=== PATIENT | female | born 1985 | race Caucasian/White ===

== ENCOUNTER → 2020-02-04 | Outpatient (CLI) | payer OTHER ==
[~2020-02-04] MED LIST: ANAS1TAB49 PO; CHOL40002 PO; CITA20TA9 PO; No meds per pt.; [UNRECOGNIZED DRUG - CODE] IM
[2020-02-04 14:21] LABS: BASOPHILS # (AUTO) 0.06 x10^3/uL (0-0.1); BASOPHILS % (AUTO) 1 % (0-1); EOSINOPHILS # (AUTO) 0.24 x10^3/uL (0-0.4); EOSINOPHILS % (AUTO) 6 % (1-7); LYMPHOCYTES # (AUTO) 1.26 x10^3/uL (1-3.4); LYMPHOCYTES % (AUTO) 29 % (22-44); MD NO; MEAN CORPUSCULAR HGB CONC 33.5 g/dL (32.4-35.8); MEAN CORPUSCULAR VOLUME 92.5 fL (80-100); MEAN PLATELET VOLUME 7.3 fL (7.4-10.4); MONOCYTES # (AUTO) 0.29 x10^3/uL (0.2-0.8); MONOCYTES % (AUTO) 7 % (2-9); NEUTROPHILS # (AUTO) 2.52 x10^3/uL (1.8-6.8); NEUTROPHILS % (AUTO) 58 % (42-75); PLATELET COUNT 294 x10^3/uL (130-400); RED BLOOD COUNT 4.59 x10^6/uL (3.82-5.3); RED CELL DISTRIBUTION WIDTH 12.5 % (9.6-15.2)
== END | disposition home or self-care (01) ==
LOC: STAR 13:14
PROVIDERS: ATTEND Surgery
DX: Z01.818 Encounter for other preprocedural examination (principal); C50.511 Malignant neoplasm of lower-outer quadrant of right female breast; Z85.3 Personal history of malignant neoplasm of breast
CPT/HCPCS: 36415; 84703; 85025

== ENCOUNTER 2020-02-10 06:00 | Day surgery (SDC) | payer OTHER ==
[~2020-02-10] VITALS: Ht 167.6 cm; Wt 70.9 kg
[2020-02-10] MEDS ORDERED: CHLORHEXIDINE 15 ML UDC MM STA (06:53)
[2020-02-10] MEDS ORDERED: MIDAZOLAM 1 MG/ML, 2ML ONE (06:58)
[2020-02-10] MEDS ORDERED: FENTANYL PF 100 MCG/2ML ONE ×2 (06:58→10:33)
[2020-02-10] MEDS ORDERED: LACTATED RINGERS 1,000 ML IV SCH (07:02)
[2020-02-10] MEDS ORDERED: BUPIVACAINE/PF-EPI 0.5% 1:200K ONE (07:17)
[2020-02-10] MEDS ORDERED: CEFAZOLIN 1,000 MG ONE ×2 (07:17→08:01)
[2020-02-10] MEDS ORDERED: GENTAMICIN 80 MG/2 ML ONE (07:17)
[2020-02-10] MEDS ORDERED: BACITRACIN 50,000 UNIT ONE (07:18)
[2020-02-10 07:29] LABS: HCG UR SG 1.024 (1.003-1.030)
[2020-02-10] MEDS ORDERED: PROPOFOL 10 MG/ML, 20ML ONE (08:01)
[2020-02-10] MEDS ORDERED: ONDANSETRON 2MG/ML, 2ML ONE (08:01)
[2020-02-10] MEDS ORDERED: SUCCINYLCHOLINE 20 MG/ML, 10ML ONE (08:01)
[2020-02-10] MEDS ORDERED: DEXAMETHASONE 4 MG/ML, 1ML ONE (08:01)
[2020-02-10] MEDS ORDERED: ROCURONIUM 10 MG/ML,10ML ONE (08:01)
[2020-02-10] MEDS ORDERED: EPHEDRINE 50 MG/ML, 1ML ONE (08:01)
[2020-02-10] MEDS ORDERED: PROMETHAZINE 25 MG/ML, 1ML IVPush PRN (09:00)
[2020-02-10] MEDS ORDERED: HYDROcodone/APAP 7.5-325MG/15ML UDC PO PRN (09:00)
[2020-02-10] MEDS ORDERED: MEPERIDINE/PF 25MG/0.5ML IVPush PRN (09:00)
[2020-02-10] MEDS ORDERED: HYDROmorphone 1 MG/ML, 1ML INJ IVPush PRN (09:00)
[2020-02-10] MEDS ORDERED: OXYcodone 5 MG/5 ML ORAL.SOL UDC ONE (10:33)
[2020-02-10] MEDS ORDERED: HYDROcodone/APAP 7.5-325MG/15ML UDC ONE (11:02)
[2020-02-10] MEDS: FENTANYL PF 100 MCG/2ML IV PRN ×2 (11:07→11:12)
== END 2020-02-10 13:20 | disposition home or self-care (01) ==
LOC: OUT 06:00
PROVIDERS: ATTEND Surgery
DX: Z40.01 Encounter for prophylactic removal of breast (principal); Z45.2 Encounter for adjustment and management of vascular access device; Z11.59 Encounter for screening for other viral diseases; Z79.899 Other long term (current) drug therapy; Z85.3 Personal history of malignant neoplasm of breast; Z90.11 Acquired absence of right breast and nipple; Z92.21 Personal history of antineoplastic chemotherapy; Z80.6 Family history of leukemia
CPT/HCPCS: 15777; 19301; 19357; 36590; 81025; 88307; C1729; C1762; C1789; J0330; J0690; J1100; J1580; J2250; J2405; J2704; J3010; J7120; U0001

== ENCOUNTER 2020-02-16 15:31 | Day surgery (SDC) | payer OTHER ==
[~2020-02-16] VITALS: Ht 167.6 cm; Wt 71.9 kg
[2020-02-16 15:59] VITALS: BP 102/68
[2020-02-16] MEDS ORDERED: STOOL SOFTENER (16:06)
[2020-02-16] MEDS ORDERED: ZOFRAN PO (16:06)
[2020-02-16] MEDS ORDERED: LACTATED RINGERS 1,000 ML IV SCH (16:06)
[2020-02-16] MEDS ORDERED: BACTRIM PO (16:06)
[2020-02-16] MEDS ORDERED: LIDOCAINE-MPF 1%, 2ML ONE (16:08)
[2020-02-16] MEDS ORDERED: CHLORHEXIDINE 15 ML UDC ONE (16:08)
[2020-02-16 16:25] LABS: HCG UR SG 1.013 (1.003-1.030)
[2020-02-16] MEDS ORDERED: CHLORHEXIDINE 15 ML UDC MM ONE (16:30)
[2020-02-16] MEDS ORDERED: LIDOCAINE-MPF 1%, 2ML INFIL ONE (16:30)
[2020-02-16] MEDS ORDERED: MIDAZOLAM 1 MG/ML, 2ML ONE (17:37)
[2020-02-16] MEDS ORDERED: PROPOFOL 50 ML ONE (17:37)
[2020-02-16] MEDS ORDERED: FENTANYL PF 250 MCG/5ML ONE (17:37)
[2020-02-16] MEDS ORDERED: CEFAZOLIN 1,000 MG ONE ×2 (17:39→17:44)
[2020-02-16] MEDS ORDERED: GENTAMICIN 80 MG/2 ML ONE (17:39)
[2020-02-16] MEDS ORDERED: BACITRACIN 50,000 UNIT ONE (17:39)
[2020-02-16] MEDS ORDERED: PROPOFOL 10 MG/ML, 50ML ONE (17:44)
[2020-02-16] MEDS ORDERED: ONDANSETRON 2MG/ML, 2ML ONE (17:44)
[2020-02-16] MEDS ORDERED: DEXAMETHASONE 4 MG/ML, 1ML ONE (17:44)
[2020-02-16] MEDS ORDERED: PROPOFOL 10 MG/ML, 20ML ONE (17:44)
[2020-02-16] MEDS ORDERED: ACETAMINOPHEN 325 MG TABLET PO PRN (18:30)
[2020-02-16] MEDS ORDERED: PROMETHAZINE 25 MG/ML, 1ML IVPush PRN (18:30)
[2020-02-16] MEDS ORDERED: HYDROmorphone 1 MG/ML, 1ML INJ IVPush PRN (18:30)
[2020-02-16] MEDS ORDERED: ONDANSETRON 2MG/ML, 2ML IVPush PRN ×2 (18:30→22:30)
[2020-02-16] MEDS ORDERED: OXYcodone 5 MG/5 ML ORAL.SOL UDC PO PRN (18:30)
[2020-02-16] MEDS ORDERED: LABETALOL 5MG/ML, 20ML IV PRN (18:30)
[2020-02-16] MEDS ORDERED: MEPERIDINE/PF 25MG/0.5ML IVPush PRN (18:30)
[2020-02-16] MEDS ORDERED: MIDAZOLAM 1 MG/ML, 2ML IV PRN (18:30)
[2020-02-16] MEDS ORDERED: DIAZEPAM 5 MG/ML, 2ML IVPush PRN (18:30)
[2020-02-16] MEDS ORDERED: FENTANYL PF 100 MCG/2ML IV PRN (18:30)
[2020-02-16] MEDS ORDERED: EPHEDRINE 50 MG/ML, 1ML IVPush PRN (18:30)
[2020-02-16] MEDS ORDERED: EPHEDRINE 50 MG/ML, 1ML IM PRN (18:30)
[2020-02-16] MEDS ORDERED: DIPHENHYDRAMINE 50 MG/ML, 1ML IVPush PRN ×2 (18:30→22:30)
[2020-02-16] MEDS ORDERED: HYDROmorphone 2 MG/ML, 1ML IV PRN (22:30)
[2020-02-16] MEDS ORDERED: HYDROcodone/APAP 5/325 TABLET PO PRN (22:30)
== END 2020-02-16 23:15 | disposition home or self-care (01) ==
LOC: OR 15:31 → 3N 20:00 → OR 23:15
PROVIDERS: ATTEND Plastic Surgery
DX: T85.79XA Infection and inflammatory reaction due to other internal prosthetic devices, implants and grafts, initial encounter (principal); Y83.8 Other surgical procedures as the cause of abnormal reaction of the patient, or of later complication, without mention of misadventure at the time of the procedure; C50.911 Malignant neoplasm of unspecified site of right female breast; Z17.0 Estrogen receptor positive status [ER+]; N64.89 Other specified disorders of breast; Z79.899 Other long term (current) drug therapy; Z91.048 Other nonmedicinal substance allergy status; Z80.3 Family history of malignant neoplasm of breast
CPT/HCPCS: 11970; 21501; 81025; C1789; J0690; J1100; J1580; J2405; J2704; J7120; G0378; J2250; J3010